=== PATIENT | male | born 1975 | race Caucasian/White ===

== ENCOUNTER 2018-07-29 16:18 | Emergency (ER) | payer OTHER ==
[~2018-07-29] VITALS: Ht 175.3 cm; Wt 103.0 kg
[~2018-07-29 16:18] MED LIST: CYCL10TA7 PO; HYDR-3980 PO; IBUP-1542 PO; TRAM50TA2 PO
[2018-07-29 16:21] VITALS: Ht 175.3 cm; Wt 103.0 kg
[2018-07-29] MEDS ORDERED: ACETAMINOPHEN 500 MG TAB PO STA (16:40)
--- NOTE | 2018-07-29 16:48 | ERD ---
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 Patient was using a chain saw to cut wood when chainsaw jumped and hit his left hand approximately 20 minutes [employer]AB[employer] WORK[employer]. Patient is right-handed. No chronic medical problems. ROS All systems reviewed and are negative except as per history of present illness. Medications Home Meds Active Scripts Hydrocodone/Acetaminophen ([place] 5-325 Tablet) 1 Each Tablet, 1 TAB PO Q6H PRN for PAIN for 5 Days, #7 TAB Prov:JAYRO REDMOND NP 07/29/18 Amoxicillin/Potassium Clav (Amox-Clav 875-125 mg Tablet) 875-125 mg Tab, 1 TAB PO BID for 7 Days, #14 TAB Prov:JAYRO REDMOND NP 07/29/18 Ibuprofen* (Motrin*) 800 Mg Tab, 800 MG PO Q6 for PAIN for 10 Days, #30 TAB Prov:JAYRO REDMOND NP 07/29/18 Tramadol HCl (Tramadol HCl) 50 Mg Tablet, 50 MG PO Q4 PRN for PAIN, #20 TAB Prov:CINTHYA MELO PA-C 10/15/15 Hydrocodone/Acetaminophen ([place] 10-325 Tablet) 1 Each Tablet, 1 TAB PO Q6H PRN for PAIN, #[address] or operate heavy machinery Prov:MARIAMA US PA-C 10/03/15 Cyclobenzaprine Hcl* (Cyclobenzaprine Hcl*) 10 Mg Tablet, 10 MG PO Q8 PRN for MUSCLE SPASMS, #60 TAB Prov:JUAN ANTONIO WISE 05/12/15 Tramadol HCl (Tramadol HCl) 50 Mg Tablet, 50 MG PO Q4 PRN for PAIN, #20 TAB Prov:JUAN ANTONIO WISE 05/12/15 Ibuprofen* (Motrin*) 600 Mg Tab, 600 MG PO Q6, #30 TAB Prov:JUAN ANTONIO WISE 05/12/15 Reported Medications [None] No Conflict Check 07/05/10 Allergies Allergies: Coded Allergies: No Known Drug Allergies (Verified Allergy, Mild, 07/01/12) PMhx/Soc Medical and Surgical Hx: pt denies Medical Hx History of Surgery: No Anesthesia Reaction: No Hx Neurological Disorder: No Hx Respiratory Disorders: No Hx Cardiac Disorders: No Hx Psychiatric Problems: No Hx Miscellaneous Medical Probl: No Hx Alcohol Use: No Hx Substance Use: No Hx Tobacco Use: No Smoking Status: Never smoker FmHx Family History: No diabetes, No coronary disease, No other Physical Exam Vitals Vital Signs Date Temp Pulse Resp B/P (MAP) Pulse Ox O2 O2 Flow FiO2 Time Delivery Rate 07/29/18 98.1 91 18 132/85 98 16:21 (101) Physical Exam Const: No acute distress Head: Atraumatic Eyes: Normal Conjunctiva ENT: Normal External Ears, Nose and Mouth. Neck: Full range of motion. No meningismus. Resp: Clear to auscultation bilaterally Cardio: Regular rate and rhythm, no murmurs Abd: Soft, non tender, non distended. Normal bowel sounds Ext: LUE: no shoulder pain, no elbow or forearm tenderness, point tenderness over 3rd metatarsal, 5 cm x 1 cm laceration to dorsal hand. 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 Left hand PROCEDURES: Laceration Repair by me: Anesthesia: 2% lidocaine locally Location: posterior left hand Tendon/Joint/Nerves: No obvious injury Foreign body: None detected after copious irrigation and exploration Technique: 13 Simple Interrupted Sutures, 4 steri-strips Complexity: 1 buried absorbable suture, no edge excision, no debridement Post Closure Length: 6 cm Patient's bleeding was easily controlled. No evidence of compartment syndrome, neurologic injury, vascular injury, open joint, tendon laceration, or foreign body. Left hand bandaged with bulky dressing, splint placed with instructions. Patient is appropriate for outpatient follow up. 48 hour wound check. Scar minimization instructions given. -Medications: Tylenol Patient tolerated medication well with no adverse reactions. Patient reported improvement in pain. MDM: This is a 42-year-old male patient who presents emergency room with laceration to dorsal surface of left hand status post cutting it with a chainsaw approximately 30 minutes prior to arrival. Pain was controlled with local anesthetic, and p.o. Tylenol. Patient was not provided with any stronger medications as he reports having 3 beers just prior to accident. Leading controlled with bulky pressure dressing, patient alert and appropriate, NAD. Patient has no history of medical problems. Upon removal of dressing large deep lap laceration noted, no arterial bleeding. No visible damage to tendons or ligaments. 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 X-ray was obtained to rule out foreign body, fracture, dislocation. There is no sign of hand injury other than the laceration. Laceration performed by me with excellent results, edges well approximated, flaps able to be approximated, good circulation with brisk blood flow at time of closure. Patient was covered with IM Rocephin, and discharged with p.o. Augmentin. Patient was provided with short course of narcotic pain medication for acute pain and ibuprofen for daily pain management. Patient and instructed on care of wound, steps to reduce swelling, red flags of worsening of condition, and close follow-up with primary care physician for referral to hand specialist. Patient states he has primary care doctor and will be able to have follow-up on Tuesday which is in 2 days for wound check. DISPOSITION and PLAN: RX: Tylenol The patient has been discharge home to follow-up with community physician. Departure Diagnosis: Primary Impression: Laceration Condition: Stable JAYRO REDMOND NP Jul 29, 2018 16:48
[2018-07-29] MEDS ORDERED: IBUP800T48 PO (16:54)
[2018-07-29] MEDS ORDERED: AMOX1TAB10 PO (16:54)
[2018-07-29] MEDS ORDERED: CEFTRIAXONE 1 GM INJ IM ONE (17:00)
[2018-07-29] MEDS ORDERED: DIPHTH/TET/ACEL PERTUSS (ADULT) 0.5 ML VIAL IM* ONE (17:00)
[2018-07-29] MEDS ORDERED: HYDR-4011 PO (19:41)
[2018-07-29 19:55] VITALS: BP 126/84; PULSE 85; RESP 20
== END 2018-07-29 20:54 | disposition home or self-care (01) ==
LOC: FTE 16:18
DX: S61.412A Laceration without foreign body of left hand, initial encounter (principal); W31.2XXA Contact with powered woodworking and forming machines, initial encounter; Y92.89 Other specified places as the place of occurrence of the external cause; Z23 Encounter for immunization
CPT/HCPCS: 12002; 73130; 90471; 90715; 96372; J0696; Z7502; Z7610

== ENCOUNTER 2018-08-01 13:50 | Emergency (ER) | payer OTHER ==
[~2018-08-01] VITALS: Ht 175.3 cm; Wt 104.6 kg
[~2018-08-01 13:50] MED LIST changes: +AMOX1TAB10 PO; +HYDR-4011 PO; +IBUP800T48 PO
[2018-08-01 13:59] VITALS: BP 162/85; PULSE 67; RESP 16; Ht 175.3 cm; Wt 104.6 kg
[2018-08-01] MEDS ORDERED: BACITUD TOP (16:29)
[2018-08-01] MEDS ORDERED: BACITRACIN 0.9 GM OINT TOP ONE (16:30)
--- NOTE | 2018-08-01 16:48 | ERD ---
ER Documentation Chief Complaint Chief Complaint left arm wound check HPI 42-year-old male presents for wound check. Patient received stitches in the dorsal aspect of his left hand couple days ago. Patient denies any fevers, chills, numbness, tingling, pain. Patient not using any antibiotics. ROS All systems reviewed and are negative except as per history of present illness. Medications Home Meds Active Scripts Bacitracin* (Bacitracin Oint (UD)*) 1 Applic Oint, 1 APPLIC TOP ONCE, #20 PKT APPLY TO Prov:JUAN ANTONIO AGUIRRE 08/01/18 Hydrocodone/Acetaminophen ([place] 5-325 Tablet) 1 Each Tablet, 1 TAB PO Q6H PRN for PAIN for 5 Days, #7 TAB Prov:JAYRO REDMOND NP 07/29/18 Amoxicillin/Potassium Clav (Amox-Clav 875-125 mg Tablet) 875-125 mg Tab, 1 TAB PO BID for 7 Days, #14 TAB Prov:JAYRO REDMOND NP 07/29/18 Ibuprofen* (Motrin*) 800 Mg Tab, 800 MG PO Q6 for PAIN for 10 Days, #30 TAB Prov:JAYRO REDMOND NP 07/29/18 Tramadol HCl (Tramadol HCl) 50 Mg Tablet, 50 MG PO Q4 PRN for PAIN, #20 TAB Prov:CINTHYA MELO PA-C 10/15/15 Hydrocodone/Acetaminophen ([place] 10-325 Tablet) 1 Each Tablet, 1 TAB PO Q6H PRN for PAIN, #[address] or operate heavy machinery Prov:MARIAMA US PA-C 10/03/15 Cyclobenzaprine Hcl* (Cyclobenzaprine Hcl*) 10 Mg Tablet, 10 MG PO Q8 PRN for MUSCLE SPASMS, #60 TAB Prov:JUAN ANTONIO WISE 05/12/15 Tramadol HCl (Tramadol HCl) 50 Mg Tablet, 50 MG PO Q4 PRN for PAIN, #20 TAB Prov:JUAN ANTONIO WISE. 05/12/15 Ibuprofen* (Motrin*) 600 Mg Tab, 600 MG PO Q6, #30 TAB Prov:JUAN ANTONIO WISE 05/12/15 Reported Medications [None] No Conflict Check 07/05/10 Allergies Allergies: Coded Allergies: No Known Drug Allergies (Verified Allergy, Mild, 07/01/12) PMhx/Soc History of Surgery: No Anesthesia Reaction: No Hx Neurological Disorder: No Hx Respiratory Disorders: No Hx Cardiac Disorders: No Hx Psychiatric Problems: No Hx Miscellaneous Medical Probl: No Hx Alcohol Use: No Hx Substance Use: No Hx Tobacco Use: No Smoking Status: Never smoker FmHx Family History: No diabetes, No coronary disease, No other Physical Exam Vitals Vital Signs Date Temp Pulse Resp B/P (MAP) Pulse Ox O2 O2 Flow FiO2 Time Delivery Rate 08/01/18 98.1 67 16 162/85 99 13:59 (110) Physical Exam Const: No acute distress Head: Atraumatic Eyes: Normal Conjunctiva ENT: Normal External Ears, Nose and Mouth. Neck: Full range of motion. No meningismus. Resp: Clear to auscultation bilaterally Cardio: Regular rate and rhythm, no murmurs Abd: Soft, non tender, non distended. Normal bowel sounds Skin: Laceration noted to the left dorsum with overlying sutures. There is no sign of wound dehiscence. There is no sign of acute space infection, cellulitis, or any other emergent condition. Back: No midline or flank tenderness Ext: No cyanosis, or edema. Moderate decreased range of motion of the second and third digit. Sensation is intact in all digits. Neur: Awake and alert Psych: Normal Mood and Affect Results 24 hrs Current Medications Medications Dose Sig/Lisa Start Time Status Last (Trade) Ordered Route PRN Stop Time Admin Dose Reason Admin Bacitracin 1 applic ONCE ONCE 08/01/18 DC 08/01/18 (Bacitracin TOP 16:30 16:44 Oint (Ud)) 08/01/18 16:31 Procedures/MDM MDM: The wound appears to be healing well with no concerns of acute infection at this time. No wound drainage or wound dehiscence noted. Tetanus is up-to-date. Post-procedural wound care was discussed with the patient. Low suspicion fore deep space infection, compartment syndrome, cellulitis, lymphangitis, or any emergent condition. There was no strong evidence of neurologic, vascular or tendon injury, however patient did have some mild decreased range of motion of the second and third fingers so I advised him to follow-up with all of you hand center the next 24 hours in order to be evaluated. Patient understood and agreed. In addition I advised patient to take bacitracin twice a day as a so that he was not prescribed this. Patient was also advised to change bandages daily and come back in 5 days for suture removal. All this is explained the p atient with translator and interpreter present. At this time, patient is stable for discharge and outpatient management. I have discussed with the patient the possibility of needing to see a specialist for further workup and imaging studies if symptoms persist. I have instructed the patient to promptly return to the ER for any new or worsening symptoms including but not limited to increased pain, fever, nausea, vomiting, weakness or LOC. The patient and/or family expressed understanding of and agreement with this plan. All questions were answered. Home care instructions were provided. [Communication with patient both during the exam and instructions for discharge were performed with using a translator and interpreter . Patient gave verbal confirmation to the practitioner, through the translator and interpreter, that they understood everythign that was being said to them.] DISCLAIMER: Inadvertent spelling and grammatical errors are likely due to EHR/dictation software use and do not reflect on the overall quality of patient care. Also, please note that the electronic time recorded on this note does not necessarily reflect the actual time of the patient encounter. Departure Diagnosis: Primary Impression: Encounter for wound re-check Condition: Stable Patient Instructions: Wound Check, Lac F/U (No Infection) Referrals: [facility] Additional Instructions: Please follow-up with [facility] within 24 hours. In addition please apply bacitracin 2 times a day to prevent infection. Return to ER 5 days for suture removal. Return to ER sooner that if not improving as expected. JUAN ANTONIO AGUIRRE Aug 01, 2018 16:48
== END 2018-08-01 16:49 | disposition home or self-care (01) ==
LOC: FTE 13:50
DX: Z48.01 Encounter for change or removal of surgical wound dressing (principal)
CPT/HCPCS: 99282